=== PATIENT | male | born 1965 | race Caucasian/White ===

== ENCOUNTER 2020-08-28 18:27 | Emergency (ER) | payer BC ==
[~2020-08-28] VITALS: Ht 180.3 cm; Wt 143.9 kg
[2020-08-28] MEDS ORDERED: ACET-897 PO (18:46)
[2020-08-28] MEDS ORDERED: LISI40TA4 PO (18:46)
[2020-08-28] MEDS ORDERED: METF10004 PO (18:46)
[2020-08-28] MEDS ORDERED: GLIP10TA PO (18:46)
[2020-08-28] MEDS ORDERED: ACETAMINOPHEN 500 MG TAB PO ONE (19:30)
[2020-08-28] MEDS ORDERED: NS 1,000 ML IV ONE (20:35)
--- NOTE | 2020-08-28 21:07 | REPVR ---
PROCEDURE INFORMATION: Exam: XR Chest Exam date and time: 08/28/2020 8:51 PM Age: 55 years old Clinical indication: Chest pain; Additional info: Sepsis/shock TECHNIQUE: Imaging protocol: XR of the chest. Views: 1 view. COMPARISON: No relevant prior studies available. FINDINGS: Lungs: Unremarkable. No consolidation. Pleural spaces: Unremarkable. No pleural effusion. No pneumothorax. Heart/Mediastinum: Unremarkable. No cardiomegaly. Bones/joints: Unremarkable. IMPRESSION: No acute findings. Electronically signed by: Emanuel Houston On 08/28/2020 21:07:46 PM
[2020-08-28 21:36] LABS: HEMATOCRIT 41.8 % (42.0-52.0); HEMOGLOBIN 14.1 g/dl (13.5-17.5); MEAN CORPUSCULAR HEMOGLOBIN 29.7 pg (27.0-33.0); MEAN CORPUSCULAR HGB CONC 33.7 g/dl (32.0-36.5); PLATELET COUNT, AUTOMATED 125 10^3/uL (150-450); RED BLOOD COUNT 4.75 10^6/uL (4.30-6.10); WHITE BLOOD COUNT 4.7 10^3/uL (4.0-10.0)
[2020-08-28 22:04] LABS: ATYPICAL LYMPH 1 % (0-5); LYMPHOCYTES 3 % (16-44); MONOCYTES 6 % (0-5); NEUTROPHILS 84 % (28-66)
[2020-08-28 22:06] LABS: PLATELET ESTIMATE DECREASED (NORMAL)
[2020-08-28 22:19] LABS: ALBUMIN 3.3 GM/DL (3.2-5.2); ALT/SGPT 79 U/L (12-78); BILIRUBIN,DIRECT 0.2 MG/DL (0.0-0.2); BILIRUBIN,TOTAL 0.7 MG/DL (0.2-1.0); BLOOD UREA NITROGEN 23 MG/DL (7-18); CALCIUM LEVEL 8.4 MG/DL (8.5-10.1); CARBON DIOXIDE LEVEL 23 MEQ/L (21-32); CHLORIDE LEVEL 97 MEQ/L (98-107); CK-MB VALUE MASS 2.1 NG/ML (<3.6); CPK CREATINE PHOSPHOKINASE 644 U/L (39-308); CREATININE FOR GFR 0.98 MG/DL (0.70-1.30); GLOMERULAR FILTRATION RATE > 60.0 (>56); GLUCOSE, FASTING 129 MG/DL (70-100); MB/CK RELATIVE INDEX 0.33 (< OR =4); SODIUM LEVEL 129 MEQ/L (136-145); TOTAL PROTEIN 6.8 GM/DL (6.4-8.2); TROPONIN I < 0.02 NG/ML (< 0.10)
[2020-08-29] MEDS ORDERED: ISOVUE-370 76% 100ML VIAL As Ordered ONE (00:09)
--- NOTE | 2020-08-29 00:48 | REPVR ---
PROCEDURE INFORMATION: Exam: CT Abdomen And Pelvis With Contrast Exam date and time: 08/29/2020 12:04 AM Age: 55 years old Clinical indication: Fever; Additional info: Fever/inc lfts TECHNIQUE: Imaging protocol: Computed tomography of the abdomen and pelvis with contrast. Radiation optimization: All CT scans at this facility use at least one of these dose optimization techniques: automated exposure control; mA and/or kV adjustment per patient size (includes targeted exams where dose is matched to clinical indication); or iterative reconstruction. Contrast material: ISO; Contrast volume: 100 ml; Contrast route: INTRAVENOUS (IV); COMPARISON: No relevant prior studies available. FINDINGS: Lungs: No suspicious mass or airspace process in the visualized lung bases. Liver: Liver is enlarged and decreased in density suggesting hepatic steatosis. Gallbladder and bile ducts: Gallbladder is present and shows no evidence of gallstone. Pancreas: Pancreas appears normal. No focal mass or peripancreatic inflammation. Spleen: Spleen appears homogeneous without focal mass. Adrenal glands: Adrenal glands are normal in appearance. Kidneys and ureters: Kidneys appear normal, with no stone, solid mass or hydronephrosis. Stomach and bowel: No evidence of small bowel obstruction. Diverticular changes are present within the colon without inflammation. Appendix: Normal caliber appendix is identified, with no adjacent inflammation. Intraperitoneal space: No pneumoperitoneum. Vasculature: Atherosclerotic change present in the aorta, without aneurysm. Main portal and splenic veins enhance normally. Lymph nodes: No enlarged lymph nodes. Urinary bladder: Urinary bladder appears normal. Reproductive: No overt enlargement of the prostate gland. Bones/joints: Mild degenerative change involving the lumbar spine and hips. Soft tissues: Mild induration around a small umbilical hernia. No fluid collection. No effacement of normal fat planes in the ischiorectal fossa. IMPRESSION: 1. Hepatomegaly and hepatic steatosis. No evidence of biliary obstruction or hepatic lesion. 2. Subcutaneous stranding around the umbilicus which is nonspecific but may represent focal cellulitis. No abscess. 3. Colonic diverticular change without active inflammation Electronically signed by: Sahil Weinstein On 08/29/2020 00:49:08 AM
[2020-08-29 01:55] VITALS: BP 109/63
== END 2020-08-29 02:25 | disposition home or self-care (01) ==
LOC: M ED 18:27
DX: E66.9 Obesity, unspecified (principal); R53.1 Weakness; R50.81 Fever presenting with conditions classified elsewhere; M79.10 Myalgia, unspecified site; R11.0 Nausea; R61 Generalized hyperhidrosis; R05 Cough; R16.0 Hepatomegaly, not elsewhere classified; K76.0 Fatty (change of) liver, not elsewhere classified; K57.30 Diverticulosis of large intestine without perforation or abscess without bleeding; E11.9 Type 2 diabetes mellitus without complications; I10 Essential (primary) hypertension
CPT/HCPCS: 71045; 74177; 80048; 80076; 81001; 82550; 82553; 83605; 84484; 85025; 86140; 87040; 87077; 87186; 96360; 99284; Q9967